=== PATIENT | male | born 1940 | race Caucasian/White ===

== ENCOUNTER 2017-01-11 19:52 | Inpatient (IN) | payer MEDICARE, OTHER ==
--- NOTE | ~2017-01-11 | HP ---
History And Physical [place] [address] [facility] [place]. [address] NAME: SONYA MERRILL : 36 STATUS : ADM IN [facility]#: [id number] AGE: 76 ADM/REG DATE : 01/11/17 MR#: [id number] REPORT SERV DATE: 01/12/17 DICTATED BY: APRIL RAMEY DATE: 01/12/17 REPORT STATUS : Draft TRANSCRIBED BY: MODL DATE: 01/12/17 DATE OF ADMISSION: 01/11/2017 CHIEF COMPLAINT: A 76-year-old male presenting with weakness, cough. HISTORY OF PRESENTING ILLNESS: The patient's history was obtained through interview with the patient and his coupled with review of [facility] medical records. The patient's history may have begun with a slight "infection" that the patient and his claimed he developed in his right thumb about 11 days ago. He was placed on a seven-day course of Augmentin and had improvement in his right thumb and maybe that this infection led to the patient feeling weaker and just generally ill. But then just in the last two days prior to admission, the patient began to be "stiff" according to his and apparently more sleepy, somnolent, and weak. Probably the main complaint has been nausea and vomiting, sometimes uncontrolled. The patient has also had a minimal nonproductive cough and increasing shortness of breath. There has been no witnessed aspiration or choking on food. The patient is denying any kind of pain complaints. No abdominal pain. No chest pain. No headache. No back pain. REVIEW OF SYSTEMS: Otherwise, a 14-point review of systems was obtained and was negative. PAST MEDICAL HISTORY: 1. 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 2. Aspiration pneumonia history. 3. Colitis. 4. Hypertension. 5. Elevated cholesterol. 6. MRSA. 7. 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 8. Previous PEG tube placement seen by Dr. Fermin. PAST SURGICAL HISTORY: 1. IVC filter placement. 2. PEG tube since removed. 3. Cholecystectomy. 4. Left hernia surgery. ALLERGIES: NO KNOWN DRUG ALLERGIES. SOCIAL HISTORY: Quit smoking more than 20 years ago. No alcohol abuse. Has been to his for 38 years. He gets around in a wheelchair only now. He is a retired operations welder. History And Physical [facility] [address] [place]. [address] NAME: SONYA MERRILL : 36 STATUS : ADM IN PAT#: [id number] AGE: 76 ADM/REG DATE : 01/11/17 MR#: [id number] REPORT SERV DATE: 01/12/17 DICTATED BY: APRIL RAMEY DATE: 01/12/17 REPORT STATUS : Draft TRANSCRIBED BY: TERESA DATE: 01/12/17 He is seen by home healthcare. FAMILY HISTORY: Stroke in brother and sister with cancer. CURRENT MEDICATIONS: Include Lipitor 20 mg p.o. daily, Coreg 3.125 mg p.o. b.i.d., folate acid 1 mg p.o. daily, Claritin 10 mg p.o. daily, Prilosec 20 mg p.o. daily, Seroquel 50 mg p.o. q.h.s., Zoloft 100 mg p.o. daily, and Coumadin 4 mg alternating with 5 mg every other day. PHYSICAL EXAMINATION: VITAL SIGNS: Temperature 97.4, pulse 106, blood pressure 165/87, respiratory rate 22, and O2 saturation 90% on 2 L nasal cannula. GENERAL: A chronically ill-appearing male. He is in no apparent distress. Just very sleepy and somnolent. HEENT: Pupils are equal, round, and reactive to light. No conjunctival pallor. No scleral icterus. Nares are patent. Oropharynx is clear of obstruction. Mildly dry mucous membranes. NECK: Trachea midline. No thyromegaly. LYMPH: No cervical lymphadenopathy. No supraclavicular lymphadenopathy. RESPIRATORY: The patient has scattered rhonchi on examination throughout the upper airways that predominate, but no focal egophony by my exam at least and no rales and no wheezes at this time. He has a nonlabored respiratory effort. CARDIOVASCULAR: Tachycardic regular rhythm. No murmurs, rubs, or gallops. No extremity edema is appreciated. ABDOMEN: Soft, nontender, nondistended. Normal bowel sounds auscultated throughout. No hepatosplenomegaly. DERMATOLOGICAL: Warm and dry extremities, no pallor, no cyanosis. PSYCHIATRIC: Flat affect, but the patient claims to be in a good mood. He is poorly oriented to time and location and recent history. LABORATORY DATA: White blood cell count 20.1, hemoglobin 18, hematocrit 52, and platelets 134. Sodium 144, potassium 3.4, chloride 113, bicarb 21, BUN 21, creatinine 1.51, glucose 182. Lipase 56. Liver enzymes within normal limits. Urinalysis negative for infection. ABG demonstrates a pH of 7.44, a PaCO2 of 31, a PaO2 of 70, and a bicarb of 21. STUDIES: A CT scan of the abdomen shows no acute abdominal process, but demonstrated bilateral lower lung pneumonia. ASSESSMENT AND PLAN: 1. Sepsis with white blood cell count of 20.1, tachycardia, tachypnea, and encephalopathy. Check blood cultures. Place on IV antibiotics. 2. Suspected aspiration pneumonia. Check blood cultures. Check swallow evaluation. Place on IV antibiotics. 3. Late effects of stroke with left hemiparesis and vascular dementia. 4. Renal insufficiency. Place on IV fluids and monitor. 5. History of pulmonary embolism, on Coumadin. Check INR. 6. Hyperglycemia. Check hemoglobin A1c. Place on sliding scale insulin. History And Physical [address] [address] NAME: SONYA MERRILL : 36 STATUS : ADM IN [facility]#: [id number] AGE: 76 ADM/REG DATE : 01/11/17 MR#: [id number] REPORT SERV DATE: 01/12/17 DICTATED BY: APRIL RAMEY DATE: 01/12/17 REPORT STATUS : Draft TRANSCRIBED BY: TERESA DATE: 01/12/17 KPHelen/TERESA April Ramey M.D. / [id number] CC: Ericka Teague M.D.
--- NOTE | ~2017-01-11 | DS ---
Discharge Summary [facility] [address] [place]. [address] NAME: SONYA MERRILL : 36 STATUS : DIS IN PAT#: [id number] AGE: 76 ADM/REG DATE : 01/11/17 MR#: [id number] REPORT SERV DATE: 01/16/17 DICTATED BY: AYLIN ARIZA DATE: 01/15/17 REPORT STATUS : Draft TRANSCRIBED BY: MODHelen DATE: 01/15/17 ADMISSION DATE: 01/11/2017 DISCHARGE DATE: 01/15/2017 PRINCIPAL DIAGNOSIS: Clostridium difficile colitis. SECONDARY DIAGNOSES: Systemic inflammatory response syndrome. Dysphagia with aspiration but without pneumonia. Stroke with left hemiparesis. Hyperglycemia, no insufficiency. History of pulmonary embolus. HISTORY OF PRESENT ILLNESS: Please see Dr. Torres's dictation on 01/11/2017. HOSPITAL COURSE: Admitted with acute fever with respiratory failure and diarrhea. There was a concern about aspiration but equal concern for C difficile. The patient had been placed on cefepime initially. Followup x-rays were negative and he passed a swallow evaluation. In the meantime, C difficile was in fact found to be positive, present on admission, although there was some delay in getting the sample. He was initiated on vancomycin. Diarrhea slowed down after it actually had paused for about 24 hours due to what was suspected to be an adynamic ileus. He was able to tolerate appetite well. He was referred to physical therapy, able to be transitioned to alf facility on 01/15/2017 in satisfactory condition with a mechanical soft diet. Physical therapy and occupational therapy per facility and on the following medications: Florastor; vancomycin tapering over 6 weeks; Coumadin; DuoNeb p.r.n.; acetylcysteine for a week; Pepcid; Zoloft; Claritin; Seroquel; Coreg; and Lipitor. His primary care provider Dr. Donald Chaudhary with whom he will follow up as an outpatient. ANNABELLE/TERESA Aylin Ariza M.D. / [id number] CC: Ericka Teagueald Neena, M.D.
[2017-01-11 18:58] LABS: BASOPHILS 0.1 %; BASOPHILS ABSOLUTE 0.03 10/3/uL (0.0-0.16); EOSINOPHILS 0.1 %; EOSINOPHILS ABSOLUTE 0.02 10/3/uL (0.0-0.53); ER CBC TAT 0 Hrs 07 Mins; HEMATOCRIT 51.5 % (40.0-51.0); HEMOGLOBIN 17.7 g/dL (13.6-17.8); IMMATURE GRANULOCYTES 0.5 %; IMMATURE GRANULOCYTES ABSOLUTE 0.11 10/3/uL (0.0-0.11); LYMPHOCYTES 6.1 %; LYMPHOCYTES ABSOLUTE 1.22 10/3/uL (0.67-4.30); MANUAL DIFF NO %; MEAN CORPUS HGB CONC 34.4 g/dL (32.0-36.0); MEAN CORPUSCULAR VOLUME 93.1 fL (80-100); MEAN PLATELET VOLUME 9.9 fL (9.2-13.0); MONOCYTES 4.6 %; MONOCYTES ABSOLUTE 0.92 10/3/uL (0.21-1.20); NEUTROPHILS 88.6 %; NEUTROPHILS ABSOLUTE 17.76 10/3/uL (2.02-8.40); PLATELET COUNT 134 10/3/uL (150-400); RED CELL COUNT 5.53 10/6/uL (4.7-6.1); WHITE BLOOD CELLS 20.1 10/3/uL (4.5-10.5)
[2017-01-11 19:13] LABS: A/G RATIO 0.8 (0.7-1.9); ALBUMIN 3.1 G/DL (3.5-5.0); ALKALINE PHOSPHATASE 83 U/L (45-117); CALCIUM, SERUM 7.6 MG/DL (8.5-10.4); CHLORIDE, SERUM 113 MMOL/L (96-112); CO2 (CARBON DIOXIDE) 21 MMOL/L (24-34); CREATININE 1.51 MG/DL (0.70-1.30); GFR AFRICAN AMERICAN 51 ML/MIN (>=60); GFR NON AFRICAN AMERICAN 44 ML/MIN (>=60); GLOBULIN 3.7 G/DL (2.5-4.1); GLUCOSE, SERUM 182 MG/DL (60-99); SGPT(ALT) 38 U/L (5-65); SODIUM, SERUM 144 MMOL/L (135-148); TOTAL BILIRUBIN 0.6 MG/DL (0-1.2); TOTAL PROTEIN 6.8 G/DL (6.0-8.5)
[2017-01-11 19:15] LABS: BUN (BLOOD UREA NITROGEN) 21 MG/DL (6-23); POTASSIUM, SERUM 4.4 MMOL/L (3.5-5.3); SGOT(AST) 38 U/L (5-40)
[2017-01-11 19:52] LABS: SEGMENTED NEUTROPHIL (0) 87 %; TOTAL NUCLEATED CELLS 100
[~2017-01-11 19:52] MED LIST: ACCUNE1 INH; AFRIN15 NAS; ALAVERT10 MG PO; BACDS PO; C5 OR; CLARIT10 PEG; CLEOCIN300 MG PO; COREG3 PO; COUMADIN6 MG PO; DITRO5 PO; FLONASE NAS; FOLIC PO; K500 PO; LIPITOR40 PEG; MIRALAXPKT PO; MULTIPLE VIT PO; NEXIUM40 MG PEG; NORCO1 TA1 PO; PERIOGARD0.12 % OR; PRILO PO; Q-TUSSIN OR; REMERON30 MG PEG; SEROQUEL50 MG PO; ULTRAM50 PO; ZOCOR20 PO; ZOL100 PO; ZOL50 PO
[2017-01-11 19:53] LABS: BAND NEUTROPHILS 7 %; ER DIFF TAT 1 Hrs 01 Mins; LYMPHOCYTES 3 %; METAMYELOCYTES 1 %; MONOCYTES 2 %; NEUTROPHILS ABSOLUTE (CALC) 18.89 10/3/uL (2.02-8.40)
[2017-01-11 19:56] LABS: RBC MORPHOLOGY NORM (NORMAL)
[2017-01-11 19:57] LABS: PLATELET ESTIMATE SLT DEC (ADEQUATE)
[2017-01-11 22:23] LABS: WBC (NOT ORDERED) (RFLEX) 0 (0-5)
[2017-01-11 22:32] LABS: ASCORBIC ACID (UR NOT ORDER) 40 (NEG); BILIRUBIN, URINE NEGATIVE (NEG); ER URINALYSIS TAT 0 Hrs 10 Mins; KETONE, URINE NEGATIVE (NEG); LEUKOCYTE ESTERASE(NOT OR NEG (NEG); NITRITE (URINE) NEG (NEG)
[2017-01-11] MEDS ORDERED: SEROQUEL50 MG PO (23:07)
[2017-01-11] MEDS ORDERED: C5 PO (23:07)
[2017-01-11] MEDS ORDERED: COUMADIN4 MG PO (23:07)
[2017-01-11] MEDS ORDERED: LIPITOR20 PO (23:08)
[2017-01-11] MEDS ORDERED: COREG3 PO (23:08)
[2017-01-11] MEDS ORDERED: ZOL100 PO (23:08)
[2017-01-11] MEDS ORDERED: PRILO PO (23:08)
[2017-01-11] MEDS ORDERED: CLARIT10 PO (23:08)
[2017-01-11] MEDS ORDERED: FOLIC PO (23:08)
[2017-01-11] MEDS ORDERED: AUG875 PO (23:10)
[2017-01-12 05:25] LABS: BASOPHILS 0.1 %; BASOPHILS ABSOLUTE 0.01 10/3/uL (0.0-0.16); EOSINOPHILS 0 %; IMMATURE GRANULOCYTES 0.3 %; IMMATURE GRANULOCYTES ABSOLUTE 0.06 10/3/uL (0.0-0.11); LYMPHOCYTES 7.9 %; LYMPHOCYTES ABSOLUTE 1.47 10/3/uL (0.67-4.30); MEAN CORPUS HGB CONC 33.6 g/dL (32.0-36.0); MEAN CORPUSCULAR HEMOGLOB 31.1 pg (26.0-34.0); MEAN CORPUSCULAR VOLUME 92.5 fL (80-100); MEAN PLATELET VOLUME 8.8 fL (9.2-13.0); MONOCYTES 6.1 %; MONOCYTES ABSOLUTE 1.15 10/3/uL (0.21-1.20); NEUTROPHILS 85.6 %; NEUTROPHILS ABSOLUTE 16.02 10/3/uL (2.02-8.40); PLATELET COUNT 134 10/3/uL (150-400); RBC DISTRIBUTION WIDTH 15.9 % (12.0-16.0); RED CELL COUNT 4.83 10/6/uL (4.7-6.1); WHITE BLOOD CELLS 18.7 10/3/uL (4.5-10.5)
[2017-01-12 05:26] LABS: HEMATOCRIT 44.7 % (40.0-51.0); MANUAL DIFF NO %
[2017-01-12 05:31] LABS: INTERNATIONAL NORMAL RATI 1.7 UNITS (-); PARTIAL THROMBO TIME 37.7 SEC (22.5-37.2)
[2017-01-12 05:32] LABS: PROTIME (NOT ORD) 19.5 SEC (12.0-14.5)
[2017-01-12 05:53] LABS: A/G RATIO 0.8 (0.7-1.9); ALBUMIN 3.1 G/DL (3.5-5.0); CHLORIDE, SERUM 110 MMOL/L (96-112); CO2 (CARBON DIOXIDE) 23 MMOL/L (24-34); GLOBULIN 3.7 G/DL (2.5-4.1); GLUCOSE, SERUM 165 MG/DL (60-99); POTASSIUM, SERUM 4.2 MMOL/L (3.5-5.3); SGOT(AST) 26 U/L (5-40); SGPT(ALT) 33 U/L (5-65); SODIUM, SERUM 145 MMOL/L (135-148); TOTAL BILIRUBIN 0.8 MG/DL (0-1.2); TOTAL PROTEIN 6.8 G/DL (6.0-8.5); TROPONIN I <0.02 NG/ML (<0.05)
[2017-01-12 06:02] LABS: ALKALINE PHOSPHATASE 64 U/L (45-117); BUN (BLOOD UREA NITROGEN) 28 MG/DL (6-23); CALCIUM, SERUM 8.9 MG/DL (8.5-10.4); CREATININE 2.03 MG/DL (0.70-1.30); GFR AFRICAN AMERICAN 35 ML/MIN (>=60); GFR NON AFRICAN AMERICAN 30 ML/MIN (>=60)
[2017-01-12 07:26] LABS: GLYCOHEMOGLOBIN (HbA1c) 5.7 % (4.7-6.1)
[2017-01-12 12:11] LABS: BE (BASE EXCESS) -3.5 MEQ/L (0 +/- 2.5); CARBOXYHEMOGLOBIN 1.7 % (0-3); HCO3 (ACTUAL BICARBONATE) 21.9 MEQ/L (23-27); HEMOBLOGIN CONTENT 16.7 G/DL (14-18); INSTRUMENT SERIAL # 8087; METHEMOGLOBIN 0.4 % (0-3); O2 CONTENT 20.1 VOL% (18-24); PCO2 (CO2 TENSION) 41 MMHG (35-45); PO2 (O2 TENSION) 53 MMHG (79-93); SAMPLE Arterial; pH 7.35 (7.37-7.43)
[2017-01-13 04:55] LABS: BASOPHILS 0.1 %; BASOPHILS ABSOLUTE 0.01 10/3/uL (0.0-0.16); EOSINOPHILS 0.1 %; EOSINOPHILS ABSOLUTE 0.01 10/3/uL (0.0-0.53); HEMATOCRIT 40.7 % (40.0-51.0); HEMOGLOBIN 13.5 g/dL (13.6-17.8); IMMATURE GRANULOCYTES 0.2 %; IMMATURE GRANULOCYTES ABSOLUTE 0.02 10/3/uL (0.0-0.11); LYMPHOCYTES 11.1 %; LYMPHOCYTES ABSOLUTE 1.27 10/3/uL (0.67-4.30); MEAN CORPUS HGB CONC 33.2 g/dL (32.0-36.0); MEAN CORPUSCULAR VOLUME 93.6 fL (80-100); MEAN PLATELET VOLUME 9.3 fL (9.2-13.0); MONOCYTES 9.3 %; MONOCYTES ABSOLUTE 1.07 10/3/uL (0.21-1.20); NEUTROPHILS 79.2 %; PLATELET COUNT 122 10/3/uL (150-400); RBC DISTRIBUTION WIDTH 16.5 % (12.0-16.0); RED CELL COUNT 4.35 10/6/uL (4.7-6.1); WHITE BLOOD CELLS 11.5 10/3/uL (4.5-10.5)
[2017-01-13 04:57] LABS: INTERNATIONAL NORMAL RATI 1.5 UNITS (-); PROTIME (NOT ORD) 17.6 SEC (12.0-14.5)
[2017-01-13 05:03] LABS: MANUAL DIFF NO %
[2017-01-13 05:04] LABS: A/G RATIO 0.8 (0.7-1.9); ALBUMIN 2.8 G/DL (3.5-5.0); ALKALINE PHOSPHATASE 61 U/L (45-117); CALCIUM, SERUM 8.5 MG/DL (8.5-10.4); CHLORIDE, SERUM 109 MMOL/L (96-112); CO2 (CARBON DIOXIDE) 24 MMOL/L (24-34); CREATININE 1.72 MG/DL (0.70-1.30); GFR AFRICAN AMERICAN 43 ML/MIN (>=60); GFR NON AFRICAN AMERICAN 37 ML/MIN (>=60); GLOBULIN 3.6 G/DL (2.5-4.1); POTASSIUM, SERUM 4.3 MMOL/L (3.5-5.3); SGPT(ALT) 28 U/L (5-65); SODIUM, SERUM 143 MMOL/L (135-148); TOTAL PROTEIN 6.4 G/DL (6.0-8.5)
[2017-01-13 05:06] LABS: BUN (BLOOD UREA NITROGEN) 38 MG/DL (6-23); GLUCOSE, SERUM 97 MG/DL (60-99); SGOT(AST) 37 U/L (5-40); TOTAL BILIRUBIN 1.5 MG/DL (0-1.2)
[2017-01-14 03:25] LABS: INSTRUMENT SERIAL # 35151; PCO2 (CO2 TENSION) 41 MMHG (35-45); PO2 (O2 TENSION) 58 MMHG (79-93); pH 7.37 (7.37-7.43)
[2017-01-14 03:26] LABS: BE (BASE EXCESS) -1.5 MEQ/L (0 +/- 2.5); CARBOXYHEMOGLOBIN 0.7 % (0-3); DEVICE NC; HCO3 (ACTUAL BICARBONATE) 23.6 MEQ/L (23-27); HEMOBLOGIN CONTENT 13.8 G/DL (14-18); METHEMOGLOBIN 0.7 % (0-3); O2 CONTENT 17.4 VOL% (18-24); SAMPLE Arterial
[2017-01-14 06:07] LABS: BASOPHILS 0.2 %; BASOPHILS ABSOLUTE 0.02 10/3/uL (0.0-0.16); EOSINOPHILS 0.5 %; EOSINOPHILS ABSOLUTE 0.06 10/3/uL (0.0-0.53); HEMATOCRIT 37.6 % (40.0-51.0); HEMOGLOBIN 12.9 g/dL (13.6-17.8); IMMATURE GRANULOCYTES 0.4 %; IMMATURE GRANULOCYTES ABSOLUTE 0.05 10/3/uL (0.0-0.11); LYMPHOCYTES 11.5 %; LYMPHOCYTES ABSOLUTE 1.32 10/3/uL (0.67-4.30); MEAN CORPUS HGB CONC 34.3 g/dL (32.0-36.0); MEAN CORPUSCULAR HEMOGLOB 30.9 pg (26.0-34.0); MEAN PLATELET VOLUME 8.8 fL (9.2-13.0); MONOCYTES 9.9 %; MONOCYTES ABSOLUTE 1.14 10/3/uL (0.21-1.20); NEUTROPHILS 77.5 %; NEUTROPHILS ABSOLUTE 8.88 10/3/uL (2.02-8.40); PLATELET COUNT 116 10/3/uL (150-400); RED CELL COUNT 4.18 10/6/uL (4.7-6.1); WHITE BLOOD CELLS 11.5 10/3/uL (4.5-10.5)
[2017-01-14 06:11] LABS: MANUAL DIFF NO %
[2017-01-14 06:12] LABS: INTERNATIONAL NORMAL RATI 1.4 UNITS (-); PROTIME (NOT ORD) 16.7 SEC (12.0-14.5)
[2017-01-14 06:23] LABS: BUN (BLOOD UREA NITROGEN) 33 MG/DL (6-23); CALCIUM, SERUM 8.8 MG/DL (8.5-10.4); CHLORIDE, SERUM 106 MMOL/L (96-112); CO2 (CARBON DIOXIDE) 24 MMOL/L (24-34); CREATININE 1.35 MG/DL (0.70-1.30); GFR AFRICAN AMERICAN 58 ML/MIN (>=60); GFR NON AFRICAN AMERICAN 50 ML/MIN (>=60); GLUCOSE, SERUM 112 MG/DL (60-99); POTASSIUM, SERUM 3.6 MMOL/L (3.5-5.3); SODIUM, SERUM 139 MMOL/L (135-148)
[2017-01-15 04:29] LABS: ALLENS TEST Pos; BE (BASE EXCESS) -0.8 MEQ/L (0 +/- 2.5); CARBOXYHEMOGLOBIN 1.3 % (0-3); DEVICE NC; HCO3 (ACTUAL BICARBONATE) 23.6 MEQ/L (23-27); HEMOBLOGIN CONTENT 14.2 G/DL (14-18); INSTRUMENT SERIAL # 8083; METHEMOGLOBIN 0.2 % (0-3); O2 CONTENT 17.7 VOL% (18-24); PCO2 (CO2 TENSION) 39 MMHG (35-45); PO2 (O2 TENSION) 55 MMHG (79-93); SAMPLE Arterial; pH 7.41 (7.37-7.43)
[2017-01-15 06:07] LABS: BASOPHILS 0.2 %; BASOPHILS ABSOLUTE 0.02 10/3/uL (0.0-0.16); EOSINOPHILS 2.7 %; EOSINOPHILS ABSOLUTE 0.27 10/3/uL (0.0-0.53); HEMATOCRIT 39.2 % (40.0-51.0); HEMOGLOBIN 13.6 g/dL (13.6-17.8); IMMATURE GRANULOCYTES 0.7 %; IMMATURE GRANULOCYTES ABSOLUTE 0.07 10/3/uL (0.0-0.11); LYMPHOCYTES 12.5 %; LYMPHOCYTES ABSOLUTE 1.25 10/3/uL (0.67-4.30); MEAN CORPUS HGB CONC 34.7 g/dL (32.0-36.0); MEAN CORPUSCULAR HEMOGLOB 31.2 pg (26.0-34.0); MEAN CORPUSCULAR VOLUME 89.9 fL (80-100); MEAN PLATELET VOLUME 9.2 fL (9.2-13.0); MONOCYTES 9.7 %; MONOCYTES ABSOLUTE 0.97 10/3/uL (0.21-1.20); NEUTROPHILS 74.2 %; NEUTROPHILS ABSOLUTE 7.41 10/3/uL (2.02-8.40); PLATELET COUNT 141 10/3/uL (150-400); RBC DISTRIBUTION WIDTH 15.6 % (12.0-16.0); RED CELL COUNT 4.36 10/6/uL (4.7-6.1)
[2017-01-15 06:12] LABS: MANUAL DIFF NO %
[2017-01-15 06:13] LABS: INTERNATIONAL NORMAL RATI 1.5 UNITS (-); PROTIME (NOT ORD) 17.7 SEC (12.0-14.5)
[2017-01-15 06:19] LABS: BUN (BLOOD UREA NITROGEN) 30 MG/DL (6-23); CALCIUM, SERUM 8.7 MG/DL (8.5-10.4); CHLORIDE, SERUM 106 MMOL/L (96-112); CO2 (CARBON DIOXIDE) 22 MMOL/L (24-34); CREATININE 1.19 MG/DL (0.70-1.30); GFR AFRICAN AMERICAN 67 ML/MIN (>=60); GFR NON AFRICAN AMERICAN 58 ML/MIN (>=60); GLUCOSE, SERUM 95 MG/DL (60-99); POTASSIUM, SERUM 3.6 MMOL/L (3.5-5.3); SODIUM, SERUM 139 MMOL/L (135-148)
== END 2017-01-15 16:51 | DRG 371 ==
LOC: ER 19:52 → 7NO 22:48
PROVIDERS: Emergency Medicine; Hospitalist; Internal Medicine
DX: A04.7 Enterocolitis due to Clostridium difficile (principal); J96.01 Acute respiratory failure with hypoxia; N17.9 Acute kidney failure, unspecified; J18.9 Pneumonia, unspecified organism; I69.354 Hemiplegia and hemiparesis following cerebral infarction affecting left non-dominant side; J98.11 Atelectasis; F01.50 Vascular dementia, unspecified severity, without behavioral disturbance, psychotic disturbance, mood disturbance, and anxiety; I69.319 Unspecified symptoms and signs involving cognitive functions following cerebral infarction; Z86.711 Personal history of pulmonary embolism; Z79.01 Long term (current) use of anticoagulants; R13.10 Dysphagia, unspecified
CPT/HCPCS: 36600; 71010; 71020; 74000; 74176; 80048; 80053; 81001; 82805; 82962; 83036; 83605; 83690; 83735; 83880; 84145; 84443; 84484; 85025; 85610; 85730; 87328; 87329; 87493; 87493-59; 89055; 92610-GN; 94640; 94667; 94668; 96374; 97161-GP; 99291; A9270-GY; C8929; G8978-CN-GP; G8979-CM-GP; G8996-CJ-GN; G8997-CJ-GN; G8998-CJ-GN; J0692; J2405; Q9957